=== PATIENT | female | born 1965 | race Caucasian/White ===

== ENCOUNTER 2019-04-05 13:00 | Outpatient (CLI) | payer OTHER ==
--- NOTE | 2019-04-10 08:28 | CONSULTATION REPORT ---
DATE OF CONSULTATION: 04/05/2019 REFFERING PHYSICIAN: Dr. Chase. SUBJECTIVE: Justine Kraft is a 54-year-old female who came today as a referral from Dr. Chase. She has been having pain and discomfort on the medial aspect of her left great toenail. She denies any sort of erythema or drainage at any time. She does admit to seeing someone to get her nails done recently and they dug in the corners and she is concerned, wanting to make sure there is no signs of infection and to see if there is anything that can be done for the mild discomfort that is there. The patient does not admit to any fevers, chills, nausea, vomiting, shortness of breath or chest pain. The patient admits that she has some blood pressure issues which we discussed slightly today. She is aware that her blood pressure was high today. The patient admits that when she was a child she stepped on a pencil and she is not sure if there was any left inside of her but she states that ever since she has had a small mass underneath her right foot. She would like that looked at as well as it is causing some discomfort. OBJECTIVE: Vitals: Temperature 98.4, heart rate 76, respiration rate 18, blood pressure 155/103. O2 saturation is 97% on room air. Vascular: Palpable DP and PT pulses, left foot. Capillary refill time is less than 3 seconds to the toes of the left foot, including the left hallux. There is no edema noted, left foot. Dermatologic: There is no erythema, purulence, malodor or drainage of any kind noted on the left great toe on the offending border or anywhere else. There are no other skin lesions or skin abnormalities that are of concern. There is a small slightly blue discoloration noted at the distal central plantar foot just proximal to the metatarsal heads. There is no erythema or ecchymosis otherwise noted. Musculoskeletal: There is slight pain on palpation more so located at the distal medial aspect of the left great toenail. There is very mild if any pain on palpation at the proximal aspect of the lateral great toenail of the left hallux. There were no other gross abnormalities noted, left foot. There is a palpable soft tissue mass noted on the distal central aspect of the plantar right foot just proximal to the second or third metatarsal head. There is no pain with palpation around it but there is pain on palpation with direct palpation on the mass that is a 5/10 according to the patient. The patient denies any change in size. Neurologic: Light touch sensation is intact to all the toes, left foot. ASSESSMENT AND PLAN: 1. Onychocryptosis, left hallux medial edge of the toenail. 2. Soft tissue mass, right foot. The patient had the possibilities of a slant back trimming done on the nail to get the distal medial aspect of the left great toenail versus a partial nail avulsion with numbing the toe and the patient has elected to just have the slant back done today and see if that is enough to relieve the discomfort. If it is not enough we will consider doing a temporary partial nail avulsion on the left great toe medial border. She will return to the clinic as needed. We discussed the possibility of getting an x-ray and likely a subsequent MRI to evaluate the soft tissue mass in her right foot plantar central distal foot. The patient is very interested in having this looked into as it is uncomfortable for her and painful. We will look into and getting approval to get x-ray and likely a following MRI afterward in order to see if we need to possibly remove this for this patient. The patient has no further questions or concerns at this time. We will notify her about the x-rays and plan to follow up with her after we get approval and those x-rays and possible MRI performed. We will consider surgical removal of the soft tissue mass as it is painful for her if we feel that it is anything concerning on MRI. Silvio Garcia.P.M. (Dictated/Not Signed) Peter Job#: [id number] MTDD
== END 2019-04-05 13:30 ==
LOC: POD 13:00
PROVIDERS: ATTEND Podiatrist Foot & Ankle Surgery
DX: L60.0 Ingrowing nail (principal); M79.89 Other specified soft tissue disorders
CPT/HCPCS: 99202; A4554

== ENCOUNTER 2019-04-16 15:43 | Outpatient (CLI) | payer OTHER ==
--- NOTE | 2019-04-16 16:15 | Diagnostic Imaging Report ---
DESIRAE WESTFALL [facility] [address] [facility] [address] [place] [address]. [id number] Report Submission Date: Apr 16, 2019 4:10:08 PM CDT Patient Study Name: SHEEBA MEZA Date: Apr 16, 2019 3:44:41 PM CDT Modality Type: DX Gender: F Description: FOOT 3 VIEWS OR MORE : 61 Institution: [facility] Physician: DESIRAE WESTFALL Exam: Right foot. History: Pain. AP, lateral and oblique view of the right foot are submitted. 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 No signs of acute fracture or dislocation is seen. No bony erosions are identified. Impression: No bony abnormality. Electronically signed on Apr 16, 2019 4:10:08 PM CDT by: Casimiro ARROYO
== END 2019-04-16 15:45 ==
LOC: RAD 15:43
PROVIDERS: ATTEND Podiatrist Foot & Ankle Surgery
DX: Q74.8 Other specified congenital malformations of limb(s) (principal)
CPT/HCPCS: 73630